=== PATIENT | male | born 1955 | race Caucasian/White ===

== ENCOUNTER → 2017-01-17 | Outpatient (CLI) | payer OTHER ==
--- NOTE | 2017-01-17 08:55 | US ---
EXAMINATION TYPE: US st tissue head/neck DATE OF EXAM: 01/17/2017 COMPARISON: NONE CLINICAL HISTORY: R22.0 NECK SWELLING. pt states he has bilateral swelling and tenderness just under the mandible; has been there for years, it affects his breathing and swallowing; dr's order is for so ft tissue neck. Bilateral neck scanned, no evidence of lymphadenopathy. Scanned over the patient's area of concern, bilateral symmetry is noted. Symmetrical homogeneous sub mandibular gland. No abnormality noted by ultrasound. IMPRESSION: NORMAL STUDY.
== END | disposition home or self-care (01) ==
LOC: RADUSWWP 08:14
PROVIDERS: ATTEND Family Medicine
DX: R22.1 Localized swelling, mass and lump, neck (principal)
CPT/HCPCS: 76536

== ENCOUNTER → 2017-02-02 | Outpatient (CLI) | payer OTHER ==
--- NOTE | 2017-02-02 09:08 | CT ---
EXAMINATION TYPE: CT soft tissue neck w con DATE OF EXAM: 02/02/2017 COMPARISON: NONE HISTORY: Dysphagia, throat swelling CT DLP: 797.20 mGycm CONTRAST: Patient injected with 100 mL of Omnipaque 300. TECHNIQUE: Axial images at 3 mm thick sections. Reconstructed images in the coronal plane and sagitt al plane are reviewed. FINDINGS: Limited CT sections are obtained the lung apices. The lung apices appear clear. CT neck: The torus tubarius and fossa of Rosenmuller are normal. Surveillance Director spaces are normal. Para nasal sinuses and mastoid air cells are clear. Parotid glands appear normal and symmetrical. The hypopharynx appears within normal limits. Vocal cord level appear symmetrical. Thyroid as visualized is normal. Osseous structures are normal. Small retention cysts are within the maxillary sinuses. BBs roxana the level of the submandibular glands which appear within normal limits. Some mild fullness is not excluded and may account for the palpable findings. Submental space is unremarkable. IMPRESSIONS: 1. No suspicious abnormality evident. 2. Some mild prominence of the submandibular glands, may be present. No suspicious masses are evident .
== END | disposition home or self-care (01) ==
LOC: RADCTMAIN 07:29
PROVIDERS: ATTEND Family Medicine
DX: R22.1 Localized swelling, mass and lump, neck (principal); R13.10 Dysphagia, unspecified; Z88.8 Allergy status to other drugs, medicaments and biological substances
CPT/HCPCS: 70491; Q9967

== ENCOUNTER → 2017-02-10 | Outpatient (CLI) | payer OTHER ==
--- NOTE | 2017-02-10 11:44 | FL ---
EXAMINATION TYPE: FL UGI air w esophagus DATE OF EXAM: 02/10/2017 CLINICAL INDICATION: 61-year-old male with dysphasia, throat swelling for 3 months, difficulty swallo wing and breathing. COMPARISON: Correlation CT 02/02/2017 Total Fluoroscopy Time: 1.4 minutes Total images: 56 FINDINGS: The swallowing mechanism is normal. However, there is mild anterior endplate spondylosis which impres ses onto the posterior pharyngeal wall. This does not cause any significant obstruction. On prone swa llowing images, there appears to be a thickened cricopharyngeus. Otherwise, hypopharyngeal anatomy is preserved. The thoracic portion demonstrates a normal course and caliber. However, there is moderate tertiary pe ristaltic contractions which causes persistent pooling of contrast in the esophagus when the patient is prone or supine. The mucosa is normal and no persistent filling defect is encountered. There is a small sliding hiatal hernia and spontaneous moderate to severe gastroesophageal reflux. Evaluation of the stomach shows mild diffuse fold thickening thickening. Both the stomach and duodenu m are free of any persistent filling defect. IMPRESSION: 1. Small sliding hiatal hernia with moderate to severe spontaneous gastroesophageal reflux. 2. Thickened cricopharyngeus seen on the prone swallowing images could be due to spasm or hypertrophy from chronic reflux. 3. Findings suggest presbyesophagus given the degree of tertiary esophageal contractions and persiste nt pooling of contrast in the esophagus when the patient is supine. 4. Mild diffuse gastric wall thickening could represent chronic gastritis
== END | disposition home or self-care (01) ==
LOC: RADFLMAIN 08:47
PROVIDERS: ATTEND Family Medicine
DX: K44.9 Diaphragmatic hernia without obstruction or gangrene (principal); K21.9 Gastro-esophageal reflux disease without esophagitis; K22.8 Other specified diseases of esophagus
CPT/HCPCS: 74246

== ENCOUNTER 2024-03-05 17:34 | Emergency (ER) | payer SELFPAY ==
--- NOTE | 2024-03-05 17:52 | ED ---
Eye Problem HPI - General Source: patient, RN notes reviewed Mode of arrival: ambulatory Limitations: no limitations <John Lombardi - Last Filed: 03/05/24 17:51> - General Source: patient, RN notes reviewed Mode of arrival: ambulatory Limitations: no limitations - History of Present Illness MD chief complaint: eye injury <Saba Yeung - Last Filed: 03/05/24 23:20> - General Chief complaint: Eye Problems Stated complaint: R eye injury Time Seen by Provider: 03/05/24 17:51 - History of Present Illness Initial comments: Quick note: 68-year-old male presented to the ER with a chief complaint of right eye injury. Patient sent by [facility] for CT scan. Patient was moving a hospital bed around 3 PM this evening. He states a part of the bed hit his right eye. Patient reports he underwent fluorescein stain and extensive testing at [facility]. Patient is here for CT scan. (John Lombardi) This is a 68-year-old male who presents to the emergency department for a right eye injury. Patient was moving a bed earlier today when the bed hit him directly in the right eye. He went to [facility] and had a large amount of testing done there, and was subsequently sent here for a CT scan for further evaluation of potential injury. They did put shield over the side to prevent any further injury. Patient denies substantial pain at this time. States that he is still able to see out of his eye. (Saba Yeung) - Related Data Home Medications Medication Instructions Recorded Confirmed Cyanocobalamin [Vitamin B-12] 1 applicate IM DIRECTED 01/07/14 01/09/14 Minocycline [Minocin] 100 mg PO DAILY 01/07/14 01/09/14 Allergies Allergy/AdvReac Type Severity Reaction Status Date / Time No Known Allergies Allergy Verified 03/05/24 18:37 Review of Systems ROS Other: All systems not noted in ROS Statement are negative. <John Lombardi - Last Filed: 03/05/24 17:51> ROS Other: All systems not noted in ROS Statement are negative. <Saba Yeung - Last Filed: 03/05/24 23:20> ROS Statement: Those systems with pertinent positive or pertinent negative responses have been documented in the HPI. Past Medical History Past Medical History: Blood Disorder, Neurologic Disorder, Skin Disorder Additional Past Medical History / Comment(s): PERNICIOUS ANEMIA.ROSACEA (CAUSED BY EXCESS VITAMIN B 12). 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 Past Anesthesia/Blood Transfusion Reactions: No Reported Reaction Additional Past Anesthesia/Blood Transfusion Reaction / Comment(s): HAS HAD IV SEDATION ONLY. Past Psychological History: No Psychological Hx Reported Additional Psychological History / Comment(s): PT SEEMS OVERACTIVE WHEN TALKING. Past Alcohol Use History: None Reported Past Drug Use History: None Reported <John Lombardi - Last Filed: 03/05/24 17:51> General Exam <John Lombardi - Last Filed: 03/05/24 17:51> Limitations: no limitations General appearance: alert Eye exam: Present: other (Hemorrhagic chemosis of the right eye. Hyphema is also present. No foreign bodies.) Respiratory exam: Present: normal lung sounds bilaterally. Absent: respiratory distress, wheezes, rales, rhonchi, stridor Cardiovascular Exam: Present: regular rate, normal rhythm, normal heart sounds. Absent: systolic murmur, diastolic murmur, rubs, gallop, clicks Neurological exam: Present: alert, oriented X3, CN II-XII intact Psychiatric exam: Present: normal affect, normal mood <Saba Yeung - Last Filed: 03/05/24 23:20> - General Exam Comments Initial Comments: Visual Physical Exam Vital signs reviewed General: Well-appearing, nontoxic, no acute distress. Head: Normocephalic, atraumatic Eyes: PERRLA, EOMI, erythema noted to right sclera. Patient does have a eye patch in place. ENT: Airway patent Chest: Nonlabored breathing Skin: No visual rash, normal skin tone Neuro: Alert and oriented 3 Musculoskeletal: No gross abnormalities (John Lombardi) Course Vital Signs 03/05/24 03/05/24 17:49 21:00 Temperature 98.5 F 97.9 F Pulse Rate 77 83 Respiratory 20 18 Rate Blood Pressure 133/82 166/80 O2 Sat by Pulse 98 98 Oximetry Medical Decision Making <John Lombardi - Last Filed: 03/05/24 17:51> - Lab Data Result diagrams: 03/05/24 20:39 03/05/24 20:39 - Radiology Data Radiology results: report reviewed, image reviewed <Saba Yeung - Last Filed: 03/05/24 23:20> - Medical Decision Making I performed the quick note portion of this chart. Electronically signed by John Lombardi PA-C (John Lombardi) This is a 68-year-old male who presents to the emergency department for a right eye injury. Was pt. sent in by a medical professional or institution? @ -[facility] Did you speak to anyone other than the patient for history? @ -No Did you review nursing and triage notes? @ -Yes, and I agree, it is accurate with regards to the patient's symptoms. Were old charts reviewed? @ -No Differential Diagnosis? @ -Differential Eye Injury: Globe rupture, retrobulbar hematoma, traumatic hyphema, retinal detachment, vitreous hemorrhage, this is not meant to be an all-inclusive list. EKG interpreted by me (3pts min.)? @ -Not obtained X-rays interpreted by me (1pt min.)? @ -Not obtained CT interpreted by me (1pt min.)? @ -CT scan of the orbits obtained. My interpretation identifies a right globe rupture. U/S interpreted by me (1pt. min.)? @ -Not obtained What testing was considered but not performed? (CT, X-rays, U/S, labs)? Why? @ -None What meds were considered but not given? Why? @ -None Did you discuss the management of the patient with other professionals? @ -Yes, Dr. Valentine, ophthalmology, who is agreeable to transfer. Dr. Marc is the accepting ED physician. Did you reconcile home meds? @ -No Was smoking cessation discussed for >3mins.? @ -No Was critical care preformed (if so, how long)? @ -No Were there social determinants of health that impacted care today? How? (Homelessness, low income, unemployed, alcoholism, drug addiction, transport ation, low edu. Level, literacy, decrease access to med. care, residential, rehab)? @ -No Was there de-escalation of care discussed even if they declined? (Discuss DNR or withdrawal of care, Hospice)? @ -No What co-morbidities impacted this encounter? (DM, HTN, Smoking, COPD, CAD, Cancer, CVA, Hep., AIDS, mental health diagnosis, sleep apnea, morbid obesity)? @ -None Was patient admitted / discharged? @ -Transferred. CT scan of the orbits was obtained demonstrating a right ruptured globe with dislocated lens outside of the globe. No retrobulbar hematoma was identified. Kaufman shield was kept in place over the eye. Tetanus vaccine was updated. 750 mg of IVPB Levaquin administered. Case discussed with Dr. Valentine, ophthalmology, at [facility] [place] [facility]. We discussed scheduled Zofran to avoid worsening symptoms in the event he were to become nauseous or vomit. This was administered. Patient kept NPO. Baseline lab work was obtained as well which was unremarkable. Patient transferred to [facility] as an ED to ED transfer. Accepting ED provider is Dr. Marc. Case discussed with ED attending, Dr. Park. Undiagnosed new problem with uncertain prognosis? @ -None Drug Therapy requiring intensive monitoring for toxicity (Heparin, Nitro, Insulin, Cardizem)? @ -None Were any procedures done? @ -None Diagnosis/symptom? @ -Right globe rupture Acute, or Chronic, or Acute on Chronic? @ -Acute Uncomplicated (without systemic symptoms) or Complicated (systemic symptoms)? @ -Uncomplicated Side effects of treatment? @ -None Exacerbation, Progression, or Severe Exacerbation] @ -Not applicable Poses a threat to life or bodily function? @ -Yes, can lead to vision loss. (Saba Yeung) - Lab Data Lab Results 03/05/24 03/05/24 03/05/24 Range/Units 20:39 20:39 20:39 WBC 6.7 (3.8-10.6) k/uL RBC 5.26 (4.30-5.90) m/uL Hgb 15.8 (13.0-17.5) gm/dL Hct 47.3 (39.0-53.0) % MCV 89.9 (80.0-100.0) fL MCH 30.0 (25.0-35.0) pg MCHC 33.4 (31.0-37.0) g/dL RDW 13.3 (11.5-15.5) % Plt Count 244 (150-450) k/uL MPV 7.2 Neutrophils % 65 % Lymphocytes % 25 % Monocytes % 7 % Eosinophils % 2 % Basophils % 0 % Neutrophils # 4.4 (1.3-7.7) k/uL Lymphocytes # 1.7 (1.0-4.8) k/uL Monocytes # 0.4 (0-1.0) k/uL Eosinophils # 0.1 (0-0.7) k/uL Basophils # 0.0 (0-0.2) k/uL PT 10.6 (10.0-12.5) sec INR 1.0 (<1.2) APTT 24.5 (22.0-30.0) sec Sodium 138 (137-145) mmol/L Potassium 5.1 (3.5-5.1) mmol/L Chloride 107 (98-107) mmol/L Carbon Dioxide 27 (22-30) mmol/L Anion Gap 4 mmol/L BUN 22 H (9-20) mg/dL Creatinine 1.09 (0.66-1.25) mg/dL Est GFR (CKD-EPI)AfAm 80 (>60 ml/min/1.73 sqM) Est GFR (CKD-EPI)NonAf 69 (>60 ml/min/1.73 sqM) Glucose 98 (74-99) mg/dL Calcium 9.8 (8.4-10.2) mg/dL Total Bilirubin 1.1 (0.2-1.3) mg/dL AST 36 (17-59) U/L ALT 31 (4-49) U/L Alkaline Phosphatase 74 (38-126) U/L Total Protein 7.3 (6.3-8.2) g/dL Albumin 4.5 (3.5-5.0) g/dL Disposition <John Lombardi - Last Filed: 03/05/24 17:51> - Out of Hospital Transfer - Req. Specs Out of Hospital Transfer - Requested Specifics: Other Emergency Center ([facility]) <Saba Yeung - Last Filed: 03/05/24 23:20> Clinical Impression: Ruptured globe, right eye Disposition: OTHER INSTITUTION NOT DEFINED Referrals: None,Stated [Primary Care Provider] - 1-2 days
--- NOTE | 2024-03-05 19:25 | CT ---
EXAMINATION TYPE: CT orbits wo con CT DLP: 277.5 mGycm, Automated exposure control for dose reduction was used. DATE OF EXAM: 03/05/2024 6:50 PM COMPARISON: None. CLINICAL INDICATION: Male, 68 years old with history of right eye injury; PHH, right eye trauma TECHNIQUE: Orbits: Axial CT with coronal and sagittal reformats through the orbits. No IV or oral contrast was u tilized. Findings: Orbital Contents: * Globes: The right globe is decompressed slightly with a fold in the globe cabrales. High density lesi on outside of the globe felt to be the lens series 2032 image 27 located just lateral in the presepta l space. No retrobulbar hematoma identified. * Preseptal Tissues: Edema around the right orbit.. * Intraconal Structures: Normal. * Extraconal Structures and Lacrimal Glands: Normal. * Orbital [place]: Normal. Sella Turcica and Cavernous Sinuses: The sella turcica and cavernous sinus regions are intact and sym metric. Visualized Brain Parenchyma: Normal. Paranasal Sinuses and Surrounding Structures: The paranasal sinuses are intact. The mastoid air cells and skull base is intact. Musculoskeletal: No evidence of fracture. Other: Soft tissues are within normal limits. IMPRESSION: Right ruptured globe with dislocated lens outside the globe. Ophthalmic surgical consultation recomme nded Findings communicated to SHARLENE Watson on 03/05/2024 7:[address] Rebel Brown.
[2024-03-05] MEDS: LEVOFLOXACIN 750MG-D5W PMX 750 MG in DEXTROSE/WATER 1 150ML.BAG IVPB STA (20:34)
[2024-03-05] MEDS: DIPH,PERTUS(ACELL)TETVAC-LF 0.5 ML VIAL IM ONE (20:35)
[2024-03-05] MEDS: ONDANSETRON 4 MG/2 ML VIAL IVP STA (20:48)
[2024-03-05 20:56] LABS: Basophils % (A) 0 %; Eosinophils # (A) 0.1 k/uL (0-0.7); Eosinophils % (A) 2 %; HCT 47.3 % (39.0-53.0); HGB 15.8 gm/dL (13.0-17.5); Lymphocytes # (A) 1.7 k/uL (1.0-4.8); Lymphocytes % (A) 25 %; MCHC 33.4 g/dL (31.0-37.0); MCV 89.9 fL (80.0-100.0); Mean Platelet Volume 7.2; Monocytes # (A) 0.4 k/uL (0-1.0); Monocytes % (A) 7 %; Neutrophils # (A) 4.4 k/uL (1.3-7.7); Neutrophils % (A) 65 %; Platelet Count 244 k/uL (150-450); RBC 5.26 m/uL (4.30-5.90); RDW 13.3 % (11.5-15.5); WBC 6.7 k/uL (3.8-10.6)
[2024-03-05 21:08] LABS: Partial Thromboplastin Time 24.5 sec (22.0-30.0); Prothrombin Time 10.6 sec (10.0-12.5)
[2024-03-05 21:14] VITALS: BP 166/80; PULSE 83; RESP 18; TEMP 97.9
[2024-03-05 21:14] LABS: ALT 31 U/L (4-49); AST 36 U/L (17-59); African American GFR (CKD) 80 (>60 ml/min/1.73 sqM); Albumin 4.5 g/dL (3.5-5.0); Alkaline Phosphatase 74 U/L (38-126); Anion Gap 4 mmol/L; Blood Urea Nitrogen 22 mg/dL (9-20); Calcium 9.8 mg/dL (8.4-10.2); Carbon Dioxide 27 mmol/L (22-30); Chloride 107 mmol/L (98-107); Glucose 98 mg/dL (74-99); Non-African American GFR(CKD) 69 (>60 ml/min/1.73 sqM); Potassium 5.1 mmol/L (3.5-5.1); Sodium 138 mmol/L (137-145); Total Bilirubin 1.1 mg/dL (0.2-1.3); Total Protein 7.3 g/dL (6.3-8.2)
== END 2024-03-05 21:00 | disposition other institution (70) ==
LOC: EC 17:34
CPT/HCPCS: 36415; 70480; 80053; 85025; 85610; 85730; 90471; 90715; 96365; 96375; 99284